=== PATIENT | female | born 1995 | race Caucasian/White ===

== ENCOUNTER 2024-04-08 05:25 | Inpatient (IN) | payer OTHER ==
[2024-04-07 11:12] LABS: Hematocrit 33.7 % (34.9-44.5); Hemoglobin 11.1 g/dL (12.0-15.5); Platelet Count 218 10x3/uL (150-450)
[2024-04-07 11:25] LABS: Syphilis Antibody Nonreactive (Nonreactive); Syphilis Antibody Index 0.04 S/CO (<1.00 Non-Reactive)
[2024-04-07 11:26] LABS: HBsAg Index 0.14 S/CO (0-0.99); Hep B Surf Ag Non-Reactive S/CO (NonReactive)
[2024-04-08 05:58] VITALS: BMI 43.4
[2024-04-08] MEDS ORDERED: Bicitra 30 ML UDCUP PO PRN (06:41)
[2024-04-08] MEDS ORDERED: Promethazine HCl 25 MG/ML VIAL IM PRN ×3 (06:41→11:07)
[2024-04-08] MEDS ORDERED: Ondansetron PF 4 MG/2 ML Vial IVP PRN ×4 (06:41→11:07)
[2024-04-08] MEDS ORDERED: hydrALAZINE 20 MG/ML VIAL SLOW IVP PRN ×2 (06:41→11:07)
[2024-04-08] MEDS ORDERED: Oxytocin 30 units/NS 500 ML 500 ML IV SCH (06:45)
[2024-04-08] MEDS ORDERED: Lactated Ringer's 1,000 ML IV SCH (06:45)
[2024-04-08] MEDS: Famotidine/PF 20 mg/2ml Vial SLOW IVP PRN (07:27)
[2024-04-08] MEDS: CEFAZOLIN 2 GM in Sodium Chloride 0.9% 100 ML IVPB SCH (07:27)
[2024-04-08] MEDS ORDERED: fentaNYL 50 mcg/mL 1 mL Vial SLOW IVP PRN (08:46)
[2024-04-08] MEDS ORDERED: Moisturizing Cream (Eucerin) 113 GM JAR TOP PRN (08:46)
[2024-04-08] MEDS ORDERED: diphenhydrAMINE 50 MG/ML VIAL IVP PRN (08:46)
[2024-04-08] MEDS ORDERED: Naloxone HCl 0.4 mg/ml Vial IVP PRN ×2 (08:46)
[2024-04-08] MEDS ORDERED: Naloxone HCl 0.4 mg/ml Vial IV PRN (08:46)
[2024-04-08] MEDS ORDERED: HYDROmorphone 0.5 MG/0.5 ML SYRINGE SLOW IVP PRN (08:46)
[2024-04-08] MEDS ORDERED: Meperidine HCl/PF 25 MG (1 mL) VIAL SLOW IVP PRN (08:46)
[2024-04-08] MEDS ORDERED: Communication Order-Pharmacy FS SCH (09:00)
[2024-04-08] MEDS ORDERED: Ketorolac Tromethamine 30 MG (1 mL) VIAL IVP SCH (09:00)
[2024-04-08] MEDS ORDERED: diphenhydrAMINE 25 MG CAP PO PRN (11:07)
[2024-04-08] MEDS ORDERED: Lanolin Ointment 7 GM TUBE TOP PRN (11:07)
[2024-04-08] MEDS ORDERED: Simethicone Chewable 80 MG TAB PO PRN (11:07)
[2024-04-08] MEDS: fentaNYL 50 mcg/mL 1 mL Vial ONE (11:10)
[2024-04-08] MEDS: Morphine PF 10 MG/10 ML VIAL ONE (11:10)
[2024-04-08] MEDS: Erythromycin Base 0.5% Oint 1 GM TUBE ONE (11:11)
[2024-04-08] MEDS: Phytonadione Neonatal 1 MG/0.5 ML AMP ONE (11:11)
[2024-04-08] MEDS: Oxytocin 10 UNITS/ML VIAL ONE (11:11)
[2024-04-08] MEDS: Phenylephrine 40 MG/NS 250 ML 250 ML ONE (11:11)
[2024-04-08] MEDS: Ondansetron PF 4 MG/2 ML Vial ONE (11:12)
[2024-04-08] MEDS: Docusate 100 MG CAP PO SCH ×2 (13:35→21:10)
[2024-04-08] MEDS: Ferrous Sulfate 325 MG TAB PO SCH ×2 (13:35→21:11)
[2024-04-08] MEDS: Prenatal Vitamin 1 TAB PO SCH (13:35)
[2024-04-08] MEDS: Ketorolac Tromethamine 30 MG (1 mL) VIAL IVP PRN (14:33)
[2024-04-08] MEDS ORDERED: HYDROcodone/Acetaminophen 5/325 mg Tablet PO PRN (21:00)
[2024-04-09 03:14] LABS: Hematocrit 29.5 % (34.9-44.5); Hemoglobin 9.5 g/dL (12.0-15.5); Mean Corpuscular HGB CONC 32.2 g/dL (32.0-36.0); Mean Corpuscular Hemoglobin 27.7 pg (27.0-33.0); Mean Platelet Volume 10.4 fL (7.4-10.4); Platelet Count 208 10x3/uL (150-450); RBC Distribution Width 14.3 % (11.5-14.5); Red Blood Cell (RBC) Count 3.43 10x6/uL (3.90-5.03); White Blood Cell (WBC) Count 10.5 10x3/uL (3.5-10.5)
[2024-04-09] MEDS: Prenatal Vitamin 1 TAB PO SCH (08:46)
[2024-04-09] MEDS: Ibuprofen 800 MG TAB PO SCH (14:10)
[2024-04-09] MEDS: Hepatitis B Vaccine 10 MCG/0.5 ML SYR ONE (14:47)
[2024-04-09] MEDS: Boostrix 0.5 ML (Tdap) VIAL (>/=7 yrs of age) IM ONE (14:47)
[2024-04-09] MEDS: Acetaminophen 325 MG TAB PO PRN (18:13)
[2024-04-10 07:42] VITALS: BP 119/68; TEMP 98.5
[2024-04-10] MEDS: HYDROcodone/Acetaminophen 5/325 mg Tablet PO PRN (13:17)
== END 2024-04-10 14:00 | disposition home or self-care (01) | DRG 788 ==
LOC: CSHLD 05:25 → CSHPP 10:50
PROVIDERS: ADMIT Student in an Organized Health Care Education/Training Program; ATTEND Student in an Organized Health Care Education/Training Program
PROC: 10D00Z1 Extraction of Products of Conception, Low, Open Approach (ICD-10-PCS; principal; 2024-04-08)
DX: O34.211 Maternal care for low transverse scar from previous cesarean delivery (principal); O30.033 Twin pregnancy, monochorionic/diamniotic, third trimester; Z3A.37 37 weeks gestation of pregnancy; O41.8X3 Other specified disorders of amniotic fluid and membranes, third trimester; Z37.0 Single live birth; Z37.1 Single stillbirth; D64.9 Anemia, unspecified
CPT/HCPCS: 51702; 85014; 85018; 85027; 85049; 86780; 86850; 86900; 86901; 87340; J1885; J2274; J2405; J2590; J3010; J3490